=== PATIENT | female | born 1935 | race Caucasian/White ===

== ENCOUNTER 2018-12-08 22:01 | Emergency (ER) | payer SELFPAY ==
[2018-12-09] MEDS: IBUPROFEN 200 MG TAB PO (00:59)
== END 2018-12-09 02:52 | disposition home or self-care (01) ==
LOC: E/R 22:01
DX: S80.01XA Contusion of right knee, initial encounter (principal); V03.10XA Pedestrian on foot injured in collision with car, pick-up truck or van in traffic accident, initial encounter; Z96.641 Presence of right artificial hip joint
CPT/HCPCS: 73562; 73590; 99283-25